=== PATIENT | male | born 1965 | race Caucasian/White ===

== ENCOUNTER → 2017-04-02 | Outpatient (CLI) | payer OTHER | LOC: MRI 10:05 | DX: M19.072 Primary osteoarthritis, left ankle and foot (principal); M72.2 Plantar fascial fibromatosis ==

== ENCOUNTER 2018-02-13 09:10 | Emergency (ER) | payer OTHER ==
[~2018-02-13] VITALS: Ht 188 cm; Wt 97.5 kg
[2018-02-13 09:15] VITALS: BP 152/91
[2018-02-13] MEDS ORDERED: KEFLEX500 M1 PO (09:26)
== END 2018-02-13 09:40 | disposition home or self-care (01) ==
LOC: ER 09:10
DX: S90.112A Contusion of left great toe without damage to nail, initial encounter (principal); W20.8XXA Other cause of strike by thrown, projected or falling object, initial encounter; Y93.89 Activity, other specified; Y92.89 Other specified places as the place of occurrence of the external cause; Y99.8 Other external cause status

== ENCOUNTER → 2018-11-11 | Outpatient (CLI) | payer OTHER ==
[~2018-11-11] MED LIST: CENTRUM SILVER1 EAC4 PO; KEFLEX500 M1 PO; OMEPRAZOLE40 MG PO; VALSARTAN-HCTZ1 EAC2 PO; VENTOLIN HFA 1818 GM INH
== END ==
LOC: RAD 15:05
DX: R05 Cough (principal)